=== PATIENT | male | born 1950 | race Caucasian/White ===

== ENCOUNTER 2020-11-15 17:48 | Emergency (ER) | payer OTHER, MEDICARE ==
[~2020-11-15] VITALS: Ht 175.3 cm; Wt 76.2 kg
[2020-11-15] MEDS ORDERED: LIPITOR40 MG PO (18:31)
[2020-11-15] MEDS ORDERED: ABILIFY 5 MG TAB5 MG PO (18:31)
[2020-11-15] MEDS ORDERED: ASA81BEC PO (18:31)
[2020-11-15] MEDS ORDERED: DEPAKOTE 250MG250 M1 PO (18:32)
[2020-11-15] MEDS ORDERED: D3-501250 MCG PO (18:32)
[2020-11-15] MEDS ORDERED: DEPAKOTE125 MG PO (18:33)
[2020-11-15] MEDS ORDERED: ZETIA10 MG PO (18:34)
[2020-11-15] MEDS ORDERED: LEXAPRO20 MG PO (18:35)
[2020-11-15] MEDS ORDERED: LISINOPRIL20 MG PO (18:35)
[2020-11-15] MEDS ORDERED: NEURONTIN100 MG PO (18:35)
[2020-11-15 19:51] LABS: URINE BILIRUBIN NEGATIVE (Negative); URINE BLOOD NEGATIVE (Negative); URINE CLARITY CLEAR; URINE COLOR YELLOW; URINE GLUCOSE-RANDOM* NEGATIVE (Negative); URINE KETONES 1+ (Negative); URINE LEUKOCYTES-REFLEX NEGATIVE (Negative); URINE NITRITE-REFLEX NEGATIVE (Negative); URINE PROTEIN (DIPSTICK) NEGATIVE (Negative); URINE SPECIFIC GRAVITY 1.015 (1.005-1.035)
[2020-11-15 20:18] LABS: ABSOLUTE NEUTROPHILS 2.9 thou/uL (1.4-8.2); BASOPHILS 0.3 % (0.0-2.0); EOSINOPHILS 1.1 % (0.0-3.0); HEMATOCRIT 35.5 % (42.0-52.0); HEMOGLOBIN 11.9 gm/dL (14.0-18.0); LYMPHOCYTES 30.7 % (24.0-44.0); MCH 33.9 pg (26.0-34.0); MCHC 33.6 g/dL (28.0-37.0); MCV 100.9 fL (80.0-100.0); MONOCYTES 11.1 % (1.0-8.0); PLATELET COUNT 158 thou/uL (150-400); POLYS 56.8 % (36.0-66.0); RBC 3.51 mil/uL (4.50-6.00); RDW 14.4 % (10.5-14.5); WBC 5.2 thou/uL (4.0-11.0)
[2020-11-15 20:33] LABS: CALCIUM 9.2 mg/dL (8.5-10.1); CREATININE 0.9 mg/dL (0.7-1.3); POTASSIUM 4.1 mmol/L (3.5-5.1)
[2020-11-15 20:38] LABS: ALBUMIN 3.2 g/dL (3.4-5.0); TOTAL BILIRUBIN 0.6 mg/dL (0.2-1.0); TOTAL PROTEIN 5.7 g/dL (6.4-8.2)
[2020-11-16 05:11] VITALS: BP 115/72
== END 2020-11-16 05:00 | disposition still patient (30) ==
LOC: ER 17:48
PROVIDERS: Physician Assistant
DX: F03.91 Unspecified dementia, unspecified severity, with behavioral disturbance (principal); Z20.828 Contact with and (suspected) exposure to other viral communicable diseases; Z79.899 Other long term (current) drug therapy; Z79.82 Long term (current) use of aspirin

== ENCOUNTER 2020-11-15 21:17 | Inpatient (IN) | payer OTHER, MEDICARE ==
[~2020-11-15] VITALS: Ht 175.3 cm; Wt 73.5 kg
[~2020-11-15 21:17] MED LIST: ABILIFY 5 MG TAB5 MG PO; ASA81BEC PO; D3-501250 MCG PO; DEPAKOTE 250MG250 M1 PO; DEPAKOTE125 MG PO; LEXAPRO20 MG PO; LIPITOR40 MG PO; LISINOPRIL20 MG PO; NEURONTIN100 MG PO; ZETIA10 MG PO
--- NOTE | 2020-11-16 06:35 | NUR ---
Assumed care of patient this am. Patient came up from the emergency department via wheelchair. Vital signs-103/53, 77 pulse, 17 respiratory rate, 97.2 temp, 98% SpO2 on room air. Patient is calm and cooperative. Alert and oriented to self. Patient is very sleepy at this time. Yellow socks put on. Wobbly gait, falls precautions in place. No aggressive behaviors noted at this time. We will continue to monitor per hospital policy.
[2020-11-16 09:16] VITALS: BP 121/55
--- NOTE | 2020-11-16 12:28 | NUR ---
DURING Q 12 MINUTE ROUNDS NOTED BY SEO MANAGER TO BE STANDING IN CORNER OF ROOM URINATING ON FLOOR WHEN SEO MANAGER ATTEMPTED TO GUIDE HIM BACK TO BED PULLED AWAY FROM SEO MANAGER SLIPPING IN OWN URINE AND ALMOST FALLING YELLING LOUDLY"DON'T TOUCH ME AGAIN-I WILL KILL YOU" AND BEGAN TO WALK BACK ACROSS URINE PUDDLE-SEO MANAGER CALLED RN FOR ASSISTANCE AND WE WERE ABLE TO GUIDE HOME BACK TO BED-CONTINUES TO STRIKE OUT AT STAFF GRAB ARMS AND ATTEMPTED TO PUNCH WITH CLOSED FIST AND ATTEMPTED TO BITE-YELLING LOUDLY "DON'T EVER TOUCH ME AGAIN-I WILL KILL YOU" ATTEMPTED TO REASSURE,REORIENT IN ATTEMPTS TO DESCALATE COMBATIVE BEHAVIOR,PARANOIA MET WITH RESISTANCE REPLYING "WELL YOU ARE A CRIMINAL AND A LIAR" DR. ELLINGTON ON UNIT ORDER RECEIVED FOR HALDOL 5MG IM-GIVEN IN LEFT DELTOID BY RN-SECURITY ON UNIT AT TIME OF IM BUT PT IS MINIMALLY RESISTIVE.
--- NOTE | 2020-11-16 15:51 | NUR ---
RESTLESS AND CONFUSED SINCE ABOVE NOTED ENTRY-TAKING BRIEF AND PANTS OFF REPEATEDLY BECOMES AGITATED WITH ATEMPTS TO PUT BACK ON. YELLING "COME ON COME ON WE GOT TO GO" ORIENTED TO NAME ONLY -ANGRY TENSE FACIAL EXPRESSION. DID EAT APPROX 1/2 OF BREAKFAST FEEDING SELF-INCONTINENT OF URINE X 3 SO FAR TODAY. REFUSES ALL PO MEDICATIONS OFFERED-"I KNOW ABOUT DRMalissaS/POISON-EVERYWHERE" SENTENCES ARE FREQUENTLY FRAGMENTED WITH OBVIOUS WORD FINDING DIFFICULTIES. GAIT IS VERY UNSTEADY WHEN ASSISTED TO BATHROOM BY 2 STAFF-BACKWARD LEANING POSTURE AND POOR BALANCE-HIGH FALLS RISK.
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
[2020-11-16 19:34] VITALS: BP 134/80
--- NOTE | 2020-11-17 03:08 | NUR ---
11-16-20 CARE TRANSFERRED 1900 OBSERVED PT SITTING GERICHAIR IN DAY ROOM. PT AAOX1, VSS, RR EVEN AND NONLABORED ON RA. PT DENIES PAIN AND SI/HI. PT HAS BEEN CALM AND COOPERATIVE THROUGHOUT NURSING ASSESSMENT. DURING MEDICATION ADMIN PT HAD NO DIFFICULTIES TAKING WHOLE WITH WATER. BED WAS ADJUSTED FOR COMFORT. ZERO S/S OF ACUTE DISTRESS NOTED, PT WILL CONTINUE TO BE MONITOR PER [facility] PROTOCOL.
[2020-11-17 09:19] VITALS: BP 132/71
[2020-11-17 11:49] VITALS: BP 132/71
--- NOTE | 2020-11-17 11:57 | NUR ---
ASSUMED CARE AT 0700 TODAY. PT. IN RECLINING CHAIR. HE IS NOT ANSWERING QUESTIONS. HE IS SITTING QUIETLY. HE TOOK HIS MORNING MEDICATIONS WITHOUT PROBLEMS NOTED. IS REQUIRING ATTENTION OF STAFF TO MAKE SURE HE EATS, HYGIENE AND ETC.
--- NOTE | 2020-11-17 15:26 | NUR ---
ASSUMED CARE AT 0700 THIS MORNING. PT. IN RECLINING CHAIR. HE OFTEN WAS NOTED TO POUND ON THIS CHAIR TO GET SOMEONE'S ATTENTION. HE CONTINUALLY CALLED THIS RN "IMAN", EVEN THOUGH HE WAS INFORMED MANY TIMES THIS WAS NOT MY GIVEN NAME. HE KEPT STATING, "YES YOU ARE IMAN". HE REMAINS CONFUSED. HE TRIED TO MAKE AN APPOINTMENT WITH THIS AIR VICE MARSHAL TO MEET ME AT 8 PM AND FOR ME TO BRING THE TOOLS TO WORK ON THE EQUIPMENT. WHEN HE WAS REMINDED THIS COULD NOT/WOULD NOT HAPPEN, HE CONTINUALLY STATED, "YES, WE HAVE TO". HE TOOK HIS MORNING MEDICATIONS WITHOUT PROBLEMS. HE FED HIMSELF WITHOUT PROBLEMS NOTED, AND ATE WELL.
[2020-11-17 20:11] VITALS: BP 129/85
--- NOTE | 2020-11-18 06:01 | NUR ---
Assumed care of patient at 1900. Pt resting in bed at start of this shift. Pt then got up and came out to dayroom/dining area for HS snack. Spent part of the evening walking around on the unit. Tends to start to enter other pts rooms, but is easily redirectable. Pt is A & O x 1. Pt affect is flat. He is compliant with medications and assessment. Pt denies any pain. Pt had BM this shift. Pt asking and talking about things that do not make sense. Will ocntinue to monitor for safety and changes in behavior per hospital protocol.
[2020-11-18 09:03] VITALS: BP 119/74
[2020-11-18 09:23] VITALS: BP 119/74
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
[2020-11-18 19:45] VITALS: BP 142/77
--- NOTE | 2020-11-19 05:09 | NUR ---
Assumed care of pt @ 1900. Pt calm et cooperative this shift. Took medications whole without difficulty. Unable to assess ambulation as pt spent most of shift in gerichair. VSWNL. Health assessment with no abnormalities noted at present time. Denies SI/HI/AVH at present time. Socialized with peers in dayroom until HS. Currently resting in bed with eyes closed. Will continue to monitor per unit protocol.
[2020-11-19 08:15] VITALS: BP 119/71
[2020-11-19 09:30] VITALS: BP 119/71
--- NOTE | 2020-11-19 18:58 | NUR ---
Assumed Pt care 0700. Pt was in the day room alert. Pt is oriented to self. Assessment completed without abnormalities. VSS,Pt took medications whole without difficuties. Pt was cooperative with his medications administration. pt was confused, but there was no sign of SI/HI noted. Pt got PRN Haldol PO for aggitation, irritability and aggressiveness twice @ 0937 and 1750. Pt is sometimes unsteady when he is ambulating. Dr ELLINGTON gave an order for a lap cherrie for safety. Pt can most times be intrusive, and invade personal space. Will continue to monitor Pt.
[2020-11-19 20:14] VITALS: BP 97/69
--- NOTE | 2020-11-20 05:11 | NUR ---
Assumed care of pt @ 1900. Pt calm et cooperative this shift. Took medications whole without difficulty. Ambulates the halls ad lucinda with somewhat steady gait. VSWNL. Health assessment with no abnormalities noted at present time. Denies SI/HI/AVH at present time. Socialized with peers in dayroom until HS. Currently resting in bed with eyes closed. Will continue to monitor per unit protocol.
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
[2020-11-20 19:28] VITALS: BP 157/83
--- NOTE | 2020-11-21 05:41 | NUR ---
Assumed care of pt @ 1900. Pt calm et cooperative this shift. Took medications whole without difficulty. Ambulates with unsteady gait. VSWNL. Health assessment with no abnormalities noted at present time. Denies SI/HI/AVH at present time. Socialized with peers in dayroom until HS. Currently resting in gerichair in dayroom with eyes open. Will continue to monitor per unit protocol.
[2020-11-21 06:51] LABS: ABSOLUTE NEUTROPHILS 2.8 thou/uL (1.4-8.2); BASOPHILS 0.3 % (0.0-2.0); HEMATOCRIT 40.8 % (42.0-52.0); HEMOGLOBIN 13.4 gm/dL (14.0-18.0); LYMPHOCYTES 27.1 % (24.0-44.0); MCH 33.1 pg (26.0-34.0); MCHC 32.8 g/dL (28.0-37.0); MONOCYTES 10.1 % (1.0-8.0); PLATELET COUNT 188 thou/uL (150-400); POLYS 61.5 % (36.0-66.0); RBC 4.04 mil/uL (4.50-6.00); RDW 14.5 % (10.5-14.5); WBC 4.5 thou/uL (4.0-11.0)
[2020-11-21 07:21] LABS: ALBUMIN 3.5 g/dL (3.4-5.0); CALCIUM 9.5 mg/dL (8.5-10.1); CREATININE 0.9 mg/dL (0.7-1.3); POTASSIUM 3.6 mmol/L (3.5-5.1); TOTAL BILIRUBIN 0.9 mg/dL (0.2-1.0); TOTAL PROTEIN 6.5 g/dL (6.4-8.2)
--- NOTE | 2020-11-21 11:35 | NUR ---
RESTLESS THIS AM-AGITATED YELLING OUT INTERMITENTLY "GET ME THE HELL OUT OF HERE GODDAMM YOU" ATTEMPTING TO GRAB ARMS OF PEERS AND STAFF WALKING BY HIM-ATTEMPTS TO REORIENT.REDIRECT UNSUCCESSFUL WILL BEGIN TO ARGUE "I AM NOT AT THE HOSPITAL I'M NOT EVEN SICK STOP YOUR LAM LYING AND GET ME OUT OF HERE" AMBULATED TO BATHROOM WITH ASSIST OF 1-2 STAFF BECOMES COMBATIVE WITH INCONTINENT CARE-ATTEMPTING TO WALK ON OWN BUT GAIT IS UNSTEADY-LEANING FORWARD AND LOSING BALANCE ATTEMPTING TO PULL AWAY FROM STAFF ASSISTING. DID TAKE AM MEDS IN YOGURT AND WAS ABLE TO FEED SELF-GOOD APPETITE-ORIENTED TO NAME ONLY-
[2020-11-21 18:51] VITALS: BP 106/46
--- NOTE | 2020-11-22 02:40 | NUR ---
assumed care approx 1900 evening 11/21. pt sitting in recliner in community room at change of shift. pt somewhat appropriate and calm in room. pts meds crushed and given in pudding and ice cream. pt spit out some of meds with pudding and then offered ice cream which he liked better and did not spit out the rest of meds. pt appears to be sleeping soundly in bed with 12 minute rounding. bed alarm on, will continue to monitor.
[2020-11-22 08:20] VITALS: BP 129/76
[2020-11-22 09:35] VITALS: BP 129/76
--- NOTE | 2020-11-22 18:33 | NUR ---
Assumed Pt care at 0700. Pt was in the day room resting. Pt was calm and co-operative with care and medication. Assessment is completed, VSS. Pt took medication crushed without difficulties. Pt ate all meals. Pt was oriented to self, he was confused DUE TO demetia. There was no sign of SI/HI. there was no sign of distress. Pt complained of generalized pain, pt rated a 6 out of 10, tylenol 650mg was administered at 1551. will continue to monitor.
[2020-11-22 19:35] VITALS: BP 144/70
--- NOTE | 2020-11-23 04:08 | NUR ---
11-22-20 CARE TRANSFERRED 1914. PT AAOX2, VSS, RR EVEN AND NONLABORED ON RA. PT DENIES ANY PAIN AND SI/HI. PT HAS BEEN RESTLESS AND REARRANGING FURNITURE IN DAY ROOM. DURING MEDICATION PT HAD NO DIFFICLTIES WITH CRUSHED MEDICATION, NOTED PT SPIT OUT UNKNOWN ABOUT OF MEDICATION. LATER PT WAS EASY TO REDIRECT AND LATER ASSISTED TO ROOM AND BED ADJUSTED FOR COMFORT. RECEIVED LAB PT WAS COVID 19 NEG. ZERO S/S OF ACUTE DISTRESS NOTED, PT IWLL CONTINUE TO BE MONITOR.
[2020-11-23 07:40] VITALS: BP 108/87
--- NOTE | 2020-11-23 15:38 | NUR ---
RT Progress Note- Jose's participation in recreation therapy groups has been limited due to his behaviors on the unit. Jose has difficulty keeping appropriate social boundaries as well as attention and focus. He responds better to 1;1 interaction such as going for a walk in the hallways. STOCK SHAPER will continue to encourage engagement.
--- NOTE | 2020-11-23 17:57 | NUR ---
Assumed pt care at 0700. Pt was alert and oriented to self. Pt was aggressive and unco-operative with care and medication. Assessment completed, VSS. Pt spit out all of his morning medication. DR Carnes was informed and medical writer was asked to repeat the morning medication he spit out.At 0930 medical writer gave pt morning medication. Pt took the medication whole without difficulties. Pt urinated on the hallway floor twice. Pt was confused, there was no sign of distress and pain noted. no sign of SI/HI noted at this time. Pt walked the around the unit most part of the day. will continue to monitor.
[2020-11-23 19:32] VITALS: BP 103/67
[2020-11-23 19:34] VITALS: BP 95/53
--- NOTE | 2020-11-24 06:12 | NUR ---
11-23-19 CARE TRANSFERRED 1899. OBSERVED PT SITTING IN GERICHAIR IN DAY ROOM. PT AAOX1, VSS, RR EVEN AND NONLABORED ON RA, PT DENIED PAIN AND SI/HI. DURING MEDICATION PT TOOK MEDICATION AND A CLEANSING BITE AND THEN I NOTED PT SPIT AND NOTED MEDICATION, UNSURE OF AMOUNT PT INGESTED. STRAP MAKING MACHINE OPERATOR REPORT PT BLD GLUCOSE WAS 62, AND PT DRANK 1 BOX OF APPLE JUICE. LATER PT BECAME AGITATED AND AGITATION INCREASED AND PRN MEDICATION WAS ADMIN. LATER NOTED PT WAS CALMER. NEXT BLD GLUCOSE 64 AND PT DRANK 2 BOXES OF OJ, THE NEXT BLD GLUOSE WAS 96, NO S/S OF ACUTE DISTRESS NOTED, PT WILL CONTINUE TO BE MONITOR PER [facility] PROTOCOL. OF NOTE, PT WAS ASSISTED TO BEDSIDE COMMODE TWICE TO OBTAIN URINE SAMPLE, THIS MAY HAVE ASSISTED IN INCREASING PT AGITATION. WILL PASS THIS IN REPORT TO ONCONING RN.
[2020-11-24 07:09] LABS: GLYCOHEMOGLOBIN (HGB A1C) 4.4 % (4.8-5.6)
[2020-11-24 07:48] VITALS: BP 135/89
[2020-11-24 08:30] VITALS: BP 135/89
--- NOTE | 2020-11-24 08:42 | NUR ---
PT SITTING OUT IN DINING ROOM FOR BREAKFAST. PT NEEDS ASSISTANCE WITH EATING. PT ABLE TO FEED SELF AND DRINK THIN WATER WITHOUT ANY ISSUES. PT TOOK MEDS CRUSHED IN PUDDING. PT TOLERATED WELL.
--- NOTE | 2020-11-24 15:45 | NUR ---
PHYSICAL THERAPY WORKED WITH HIM AND HE WAS ABLE TO WALK TO ROOM WITH WALKER. PT UNABLE TO FOLLOW DIRECTIONS TO SIT DOWN ON BSC. ATTEMPTED TO OBTAIN UA WITH URINAL. PT UNABLE TO URINATE AT THIS TIME. PT DID SIT DOWN ON BED WITH CONSTANT DIRECTION. PT BRIEF CHANGED AND PANTS. PT WAS CLEANED UP AND APPLIED NEW CLOTHES ON PT. PT WALKED BACK TO DINING ROOM AND HAD SOME APPLE SAUCE TO EAT. PT FED SELF APPLE SAUCE.
[2020-11-24 19:02] VITALS: BP 135/81
[2020-11-24 21:41] VITALS: BP 138/73
--- NOTE | 2020-11-25 00:20 | NUR ---
Assumed care for pt at 1900. Pt sitting in dining room in ashwin chair during earlier part of evening. Pt has been calm and cooperative this evening. Pt compliant and cooperative with HS assessment and medications. Pt takes medications crushed in pudding. Pt HS accu check was 165. Pt denies any pain. Pt has not shown any acute signs of distress/discomfort. Pt is on 12 minute checks for safety. Pt is a high fall risk and has unsteady gait w/walker. Pt needs reminded to utilize walker. Pt is currently working with PT. Pt has high fall risk precautions in place. Will continue to monitor per hospital and unit protocols for any changes in behavior and safety.
[2020-11-25 09:01] VITALS: BP 157/93
[2020-11-25 09:43] VITALS: BP 157/93
--- NOTE | 2020-11-25 10:57 | NUR ---
Nutrition: Pt seen for LOS. Admitted with dementia w/ agressive behaviors. Pt with variable appetite, averaging 51% at meals, and noted consumed 100% of breakfast and am snack today. Weight 162# on admission, no new wt to assess.No c/o GI distress, skin remains intact. Being offered snacks with meds. Pt remains low nutrition risk with current interventions. RD will remain available.
--- NOTE | 2020-11-25 14:18 | NUR ---
1400 RESUMMED CARE FROM OVERNIGHT SHIFT THIS AM, PATIENT THIS AM IN DAY ROOM IN ROXANNE CHAIR QUIET. PATIENT ATE BREAKFAST TOOK MEDICATION WITHOUT INCIDENCE CRUSHED IN YOGART. PATIENTS ABDOMEN SOFT ROUNND BOWEL SOUNDS PRESENT LUNGS CLEAR. PATIENT ALERT AND ORIENTED TO SELF ONLY PATIENT CANNOT TELL ME ABOUT SI/HI/AH/VH AT PRESENT. PATIENTS COGNITION IS OFF DUE TO DEMENTIA AND ALZHEMERS. PATIENT IS REDIRECTABLE AND SOMETIMES CAN BE COMBATIVE WITH CARES. WILL CONTINUE TO MONITOR PATIENT FOR SAFETY AND BEHAVIORS.
[2020-11-25 18:56] LABS: URINE BILIRUBIN NEGATIVE (Negative); URINE BLOOD 1+ (Negative); URINE CLARITY CLEAR; URINE COLOR YELLOW; URINE GLUCOSE-RANDOM* NEGATIVE (Negative); URINE KETONES TRACE (Negative); URINE LEUKOCYTES NEGATIVE (Negative); URINE NITRITE NEGATIVE (Negative); URINE PROTEIN (DIPSTICK) NEGATIVE (Negative); URINE SPECIFIC GRAVITY 1.015 (1.005-1.035)
[2020-11-25 19:04] LABS: BACTERIA 1-9 Few /HPF (None Seen); CASTS None Seen /LPF (None Seen); CRYSTALS None Seen /LPF (None Seen); SQUAMOUS 0-3 Few /LPF (0-3); URINE RBC 3-10 Few /HPF (0-2); URINE WBC 0-5 Rare /HPF (0-5)
[2020-11-25 19:30] VITALS: BP 113/70
[2020-11-25 20:36] VITALS: BP 113/70
--- NOTE | 2020-11-26 01:23 | NUR ---
PATIENT SAT UP IN ROXANNE CHAIR THIS EVENING IN THE DINING ROOM BEFORE BEING ASSISTED TO BED AROUND 2129. PATIENT IS A/0X1. HE TOOK HIS MEDS CRUSHED IN PUDDING TO NIGHT. HE ALSO HAD ICECREAM FOR A SNACK AT . HE DENIES PAIN. HE WAS LOUD A COUPLE OF TIMES BUT EASILY REDIRECTED. PATIENT APPEARS TO BE SLEEPING AT THIS TIME. BED IN LOW POSITION AND BED ALARM IS ON. CONTINUING TO ASSESS FOR STATUS AND SAFETY OF PATIENT THRU ROUTINE ROUNDS.
[2020-11-26 06:42] LABS: HEMATOCRIT 40.2 % (42.0-52.0); HEMOGLOBIN 13.4 gm/dL (14.0-18.0); MCH 33.3 pg (26.0-34.0); MCHC 33.2 g/dL (28.0-37.0); MCV 100.3 fL (80.0-100.0); RBC 4.01 mil/uL (4.50-6.00); RDW 14.5 % (10.5-14.5); WBC 4.2 thou/uL (4.0-11.0)
[2020-11-26 07:17] LABS: ALBUMIN 3.3 g/dL (3.4-5.0); CALCIUM 9.3 mg/dL (8.5-10.1); CREATININE 0.9 mg/dL (0.7-1.3); POTASSIUM 3.6 mmol/L (3.5-5.1); TOTAL BILIRUBIN 0.6 mg/dL (0.2-1.0); TOTAL PROTEIN 6.2 g/dL (6.4-8.2)
[2020-11-26 08:00] VITALS: BP 136/87
--- NOTE | 2020-11-26 08:58 | NUR ---
PT SITTING OUT IN DINING ROOM EATING BREAKFAST. PT ABLE TO FEED SELF WITH SMALL AMT OF ASSIST. PT KNOWS BIRTHDAY AND SAYING IT TO THIS STEEL RULE DIE MAKER. PT HAS SOME REDDNESS TO LEFT EYE WITH DRY SEDIMENT. PT HAS EYES CLOSED AND ENCOURAGE TO OPEN EYES. PT LUNGS CLEAR. PT IS CALM AND COOROPERATIVE WITH MEDS. PT TOOK MEDS CRUSHED IN PUDDING THIS AM.
[2020-11-26 09:58] VITALS: BP 136/87
--- NOTE | 2020-11-26 12:58 | NUR ---
MIKI spoke Lisa at [facility], , concening discharge. Lisa confirmed she recieved clinical notes and asked MIKI to schedule transportation. Pt will be d/c 11/29/20 @10am. Pt will be transported by [facility]. MIKI did notify Janie DORSEY, of this discharge.
--- NOTE | 2020-11-26 13:30 | NUR ---
ASSISTED PT TO ROOM TO CHANGE HIS BRIEF AND PANTS. PT WAS ABLE TO SIT ON BED FOR INCON. OF URINE CHANGE. PT WAS CALM AND FOLLOWED DIRECTIONS. PT ABLE TO BEAR WT ON FEET.
[2020-11-26 20:33] VITALS: BP 154/100
[2020-11-26 22:28] VITALS: BP 126/87
--- NOTE | 2020-11-26 22:37 | NUR ---
Assumed care for pt at 1900. Pt sitting in ashwin-chair in dining room at table at start of shift/earlier part of evening. Pt BP assessed at start of shift elevated; reassessed prior to bedtime and BP was WNL at 126/87. Pt compliant with nursing assessment and medications. Pt takes medications crushed in yogurt. Pt denies having any pain. Pt left eye has discharge in corner; assisted with wiping/cleansing eye/eyelid with warm water/wash clothe. Pt is incontinent and assisted with pericare as needed this shift. Pt has been calm and cooperative. Pt is ambulatory at times with walker, but has not been observed ambulating during this shift. Pt is assist x 2 to transfer from gerichair this evening to bed. Pt is redirectable when needed. Pt is a high fall risk and has fall risk protocol in place. Pt is on 12 minute checks for safety. Will continue to monitor pt for any changes in behavior/mood and for safety per hospital/unit protocols.
[2020-11-27 08:24] VITALS: BP 140/85
--- NOTE | 2020-11-27 18:14 | NUR ---
Assumed pt care at 0700. Pt was in the day room. pt was oriented to self, pt was calm and co-operative in day time. Pt took his medication crushed without difficulties. pt was confused due to dementia, there were no signs of SI/HI noted, no pain noted. after dinner pt started getting irritated. there were no Prn given. Assessments are completed and his VSS. will continue to monitor pt.
[2020-11-27 19:29] VITALS: BP 117/76
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
--- NOTE | 2020-11-28 06:04 | NUR ---
Pt had PRN haldol at 0457. Pt sitting in ashwin-chair in dining room at this time and is calmer. PRN appears to have been affective.
[2020-11-28 08:11] VITALS: BP 116/70
[2020-11-28 08:30] VITALS: BP 116/70
--- NOTE | 2020-11-28 08:32 | NUR ---
PT NEEDING ASSIST WITH BREAKFAST. PT LIKES TO HAVE HIS EYES CLOSED. PT DID OPEN EYES WHEN EATING. THIS CASE PREPARER AND LINER WIPED LEFT EYE CRUSTY OUT. PT TOLERATED CLEANING OF FACE. ASKED PT IF HE WANTED TO WIPE HIS FACE, HE DIDN'T RESPOND TO QUESTION. PT ABLE TO FEED SELF, BUT SOMETIMES PT SUCKS SPOON END LIKE IT IS A STRAW. PT TOOK MEDS WITHOUT ANY ISSUES. PT CLEANING FACE WITH [place] AFTER EATING. PT IN ROXANNE CHAIR AT THIS TIME.
--- NOTE | 2020-11-28 12:42 | NUR ---
MIKI faxed updates to [facility]. MIKI team will continue to monitor.
--- NOTE | 2020-11-28 13:00 | NUR ---
PT BRIEF CHANGED. PT TOLERATED ADL CARE. ASSISTED PT WITH LUNCH. PT ABLE TO FEED SELF, HE NEEDS OBSERVATION WITH EATING. PT PUTTING ITEMS IN HIS MOUTH SUCH GRAMHN CRACKER WRAPPERS.
--- NOTE | 2020-11-28 18:30 | NUR ---
TOOK PT TO CHANGE BRIEF DUE TO INCON. PT ABLE TO STAND FOR CHANGE. PT VERY HARD TO DIRECT TO SIT DOWN ON THE COMMODE. PT DID SIT ON BED AND CLEANED UP WITH FRESH BRIEF AND PANTS. PT WANTED TO LAY DOWN THEN SAID HE WASN'T WANTING TO LAY DOWN. PUT PT IN ROXANNE CHAIR WITH LAP KHRIS. PT DOESN'T TRY TO GET UP OUT OF CHAIR.
[2020-11-28 19:21] VITALS: BP 119/75
[2020-11-29 02:30] VITALS: BP 119/75
--- NOTE | 2020-11-29 05:37 | NUR ---
Assumed care of pt at 1900. Pt up in gerichair at start of the shift in dining room. Pt assisted with restroom at 1850. Pt has been cooperative but restless at times. Pt compliant with taking HS medications and took them crushed in applesauce. Pt denied having any pain. Pt is scheduled to discharge this morning @ 1000 to [place]. Pt denied having any pain. Pt denies SI/HI. Pt is observed at times talking to self/unseen other. Pt keeps eyes closed throughout shift. Pt assisted with pericares at 0400 when asked to lay down, after not wanting to lay down prior during night. Pt resting in bed at this time with eyes closed and appears to be sleeping. Pt is a high fall risk with fall risk protocols implemented/in place. Pt is on 12 min checks for safety. Will continue to monitor for any changes, behaviors, and for safety. Pt utilizes a lap cherrie when up in chair for safety, as pt can be impulsive and has hx of falling.
--- NOTE | 2020-11-29 05:54 | NUR ---
Pt COVID19 test results came back negative.
[2020-11-29 08:55] VITALS: BP 140/115
[2020-11-29] MEDS ORDERED: DEPAKOTE SPRIN125 MG PO (09:55)
[2020-11-29] MEDS ORDERED: SEROQUEL 25 MG25 M1 PO (09:56)
[2020-11-29] MEDS ORDERED: NAMENDA 5 MG TAB5 M1 PO (09:56)
[2020-11-29] MEDS ORDERED: LORAZEPAM 0.50.5 MG PO (09:57)
[2020-11-29] MEDS ORDERED: CENTRUM SILVER1 EAC4 PO (09:57)
--- NOTE | 2020-11-29 10:28 | NUR ---
1000 RESUMMED CARE FROM OVERNIGHT SHIFT THIS AM, PATIENT IN DAY ROOM QUIET. PATIENT ATE BREAKFAST TOOK MEDICATION CRUSHED IN APPLESAUCE. PATIENTS ABDOMEN SOFT ROUND BOWEL SOUNDS PRESENT LUNGS CLEAR. PATIENT IS ORIENTED TO SELF SOMETIMES GET CONFUSED PATIENT DENIES SI/HI/AH/VH AT PRESENT. PATIENT IS DISCHARGING TODAY TO [facility]; PATIENTS DISCHARGE INFO AND SCRIPTS SENT WITH TRANSPORTER.
== END 2020-11-29 10:10 | DRG 57 ==
LOC: SBH 21:17
PROVIDERS: Nurse Practitioner Family; ADMIT Psychiatry & Neurology Psychiatry; ATTEND Psychiatry & Neurology Psychiatry
DX: G30.9 Alzheimer's disease, unspecified (principal); F02.81 Dementia in other diseases classified elsewhere, unspecified severity, with behavioral disturbance; I10 Essential (primary) hypertension; E11.40 Type 2 diabetes mellitus with diabetic neuropathy, unspecified; E78.5 Hyperlipidemia, unspecified; Z20.822 Contact with and (suspected) exposure to COVID-19; Z79.899 Other long term (current) drug therapy; Z79.82 Long term (current) use of aspirin; Z23 Encounter for immunization
CPT/HCPCS: 10880

== ENCOUNTER 2020-12-07 10:47 | Emergency (ER) | payer OTHER, MEDICARE ==
[~2020-12-07] VITALS: Ht 182.9 cm; Wt 68.5 kg
[2020-12-07 10:47] VITALS: BP 135/73
[~2020-12-07 10:47] MED LIST changes: +CENTRUM SILVER1 EAC4 PO; +DEPAKOTE SPRIN125 MG PO; +LORAZEPAM 0.50.5 MG PO; +NAMENDA 5 MG TAB5 M1 PO; +SEROQUEL 25 MG25 M1 PO
[2020-12-07] MEDS ORDERED: XANAX 0.25 MG0.25 MG PO (10:58)
--- NOTE | 2020-12-07 11:01 | NUR ---
CALLED [facility], SPOKE WITH THE DON; DESIRAE THAKKAR. SHE STATES: PT. WAS GIVEN HALDOL INPT. HERE AT [facility], THEY D/C'D HALDOL, AND TAPERING THE DEPAKOT AND SEROQUEL. LEXAPRO WAS ALSO D/C'D. ALL ORDERS BY DR VARGHESE. BEHAVIORS ARE PACING, AND STANDING STILL IN AREAS OF THE FACILITY VERY RIGIDLY THEN BECOMES COMBATIVE WHEN ASKED TO MOVE. HE HAS BEEN SPITTING OUT HIS MEDS. HE HAS STOPPED EATING AND HAS LOST WEIGHT. SHE STATES 'ITS LIKE HE HAS COMPLETELY LOST ANY SORT OF TOUCH WITH REALITY OR UNDERSTANDING.' "HE IS A TOTALLY DIFFERENT PERSON AND UNDERSTAND NOTHING" SHE STATES THIS BEHAVIOR STARTED 3 DAYS AFTER COMING BACK FROM [facility] (LAST SUNDAY). DOSE REDUCTION OF SEROQUEL AND DEPAKOTE ON . D/C OF LEXAPRO AND HALDOL UPON READMISSION (NEVER REORDERED) ADDED TO MED LIST: BENZTROPINE 0.5MG QAVIRI 12/03/20 FOR EPS.
[2020-12-07 11:55] LABS: ABSOLUTE NEUTROPHILS 5.5 thou/uL (1.4-8.2); BASOPHILS 0.2 % (0.0-2.0); EOSINOPHILS 0.4 % (0.0-3.0); HEMATOCRIT 38.3 % (42.0-52.0); HEMOGLOBIN 12.7 gm/dL (14.0-18.0); LYMPHOCYTES 17.3 % (24.0-44.0); MCHC 33.3 g/dL (28.0-37.0); MCV 99.2 fL (80.0-100.0); MONOCYTES 12.8 % (1.0-8.0); PLATELET COUNT 179 thou/uL (150-400); POLYS 69.3 % (36.0-66.0); RBC 3.86 mil/uL (4.50-6.00); RDW 14.3 % (10.5-14.5)
[2020-12-07 11:58] LABS: CALCIUM 9.2 mg/dL (8.5-10.1); CREATININE 0.8 mg/dL (0.7-1.3)
[2020-12-07 12:01] LABS: URINE BILIRUBIN NEGATIVE (Negative); URINE BLOOD NEGATIVE (Negative); URINE CLARITY CLEAR; URINE COLOR YELLOW; URINE GLUCOSE-RANDOM* NEGATIVE (Negative); URINE KETONES 1+ (Negative); URINE LEUKOCYTES-REFLEX NEGATIVE (Negative); URINE NITRITE-REFLEX NEGATIVE (Negative); URINE PROTEIN (DIPSTICK) NEGATIVE (Negative); URINE UROBILINOGEN >= 8.0 E.U./dl (0.2-1.0)
[2020-12-07 12:05] LABS: TOTAL BILIRUBIN 0.9 mg/dL (0.2-1.0); TOTAL PROTEIN 6.5 g/dL (6.4-8.2)
--- NOTE | 2020-12-08 07:26 | EKG ---
[place] [address] [facility] [place] [address] ELECTROCARDIOGRAM REPORT Name: SANDEEP ROJAS [id number] Admission: 12/07/20 Attend Phys: Discharge: Date of : 54 Report #: [id number] [facility] ED Test Date: 2020-12-07 Test Time: 17:11:19 Pat Name: SANDEEP ROJAS Department: Room: Gender: M Alpaca Farmer: ERNIE : 1950 Requested By: Deon Renee Order Number: [id number] MD: Tony Pittman Measurements Intervals Lueders Rate: 75 P: 18 ME: 140 QRS: -21 QRSD: 130 T: 34 QT: 445 QTc: 498 Interpretive Statements Sinus rhythm Multiple ventricular premature complexes Right bundle branch block Baseline wander in lead(s) V3 No previous ECG available for comparison Electronically Signed On 12-08-2020 7:26:33 SHINGLE TRIMMER by Tony Pittman [email or web address] <ELECTRONICALLY SIGNED> By: Tony Pittman MD, [facility] 12/08/20 0726 171 1711 Tony Pittman MD, FACC /EPI
[2020-12-08 08:45] VITALS: BP 126/82
== END 2020-12-08 08:45 ==
LOC: ER 10:47 → EROBS 12-08 08:45 → ER 12-08 08:47 → EROBS 12-08 08:47 → SBH 12-08 08:48 → EROBS 12-08 08:48
PROVIDERS: Physician Assistant
DX: F03.90 Unspecified dementia, unspecified severity, without behavioral disturbance, psychotic disturbance, mood disturbance, and anxiety (principal); R45.6 Violent behavior; Z20.822 Contact with and (suspected) exposure to COVID-19; I10 Essential (primary) hypertension; E11.41 Type 2 diabetes mellitus with diabetic mononeuropathy

== ENCOUNTER 2020-12-08 08:18 | Inpatient (IN) | payer OTHER, MEDICARE ==
[~2020-12-08] VITALS: Ht 177.8 cm; Wt 65.5 kg
[~2020-12-08 08:18] MED LIST changes: +XANAX 0.25 MG0.25 MG PO
[2020-12-08 19:41] VITALS: BP 148/74
[2020-12-09 09:30] VITALS: BP 114/72
[2020-12-09 09:46] VITALS: BP 114/72
[2020-12-09 19:11] VITALS: BP 151/84
[2020-12-10 07:08] LABS: CREATININE 0.9 mg/dL (0.7-1.3); POTASSIUM 3.7 mmol/L (3.5-5.1)
[2020-12-10 08:29] VITALS: BP 176/108
[2020-12-10 10:50] VITALS: BP 136/103
[2020-12-10 10:53] VITALS: BP 140/90
[2020-12-10 12:41] LABS: URINE BILIRUBIN NEGATIVE (Negative); URINE BLOOD NEGATIVE (Negative); URINE CLARITY CLEAR; URINE COLOR YELLOW; URINE GLUCOSE-RANDOM* NEGATIVE (Negative); URINE KETONES TRACE (Negative); URINE LEUKOCYTES-REFLEX NEGATIVE (Negative); URINE NITRITE-REFLEX NEGATIVE (Negative); URINE PROTEIN (DIPSTICK) NEGATIVE (Negative); URINE SPECIFIC GRAVITY 1.025 (1.005-1.035)
[2020-12-10 20:07] VITALS: BP 118/84
[2020-12-10 21:00] VITALS: BP 118/84
[2020-12-11 07:50] VITALS: BP 99/70
[2020-12-11 14:30] VITALS: BP 99/70
[2020-12-11 19:44] VITALS: BP 137/87
[2020-12-12 10:12] VITALS: BP 139/110
[2020-12-12 18:10] VITALS: BP 99/71
[2020-12-13 10:57] VITALS: BP 113/68
[2020-12-13 19:53] VITALS: BP 106/58
[2020-12-13 21:15] VITALS: BP 92/44
[2020-12-13 22:15] VITALS: BP 94/46
--- NOTE | 2020-12-14 08:02 | EKG ---
[place] [address] [facility] [place] [address] ELECTROCARDIOGRAM REPORT Name: SANDEEP ROJAS Room #: 528[facility] ADM IN M.R.#: [id number] Admission: 12/08/20 Attend Phys: Lani Carnes MD Discharge: Date of : 54 Report #: [id number] [facility] Test Date: 2020-12-14 Test Time: 07:30:41 Pat Name: SANDEEP ROJAS Department: Room: [facility] Gender: M Chief Accountant: CHRISTIAN : 1950 Requested By: Lani Carnes Order Number: [id number] MD: Shan Alford Measurements Intervals [place] Rate: 91 P: 21 CA: 143 QRS: -62 QRSD: 126 T: 36 QT: 359 QTc: 442 Interpretive Statements Sinus rhythm Ventricular premature complex RBBB and LAFB Baseline wander in lead(s) V2 Compared to ECG 12/07/2020 17:11:19 [place] has shifted leftward Electronically Signed On 12-14-2020 8:02:29 [employer] by Shan Alford [email or web address] <ELECTRONICALLY SIGNED> By: Shan Alford MD, [facility] 12/14/20801 9 9 Sahn Alford MD, [facility] /EPI
[2020-12-14 09:10] VITALS: BP 135/62
[2020-12-14 20:17] VITALS: BP 106/73
[2020-12-15 13:08] VITALS: BP 129/79
[2020-12-15 19:53] VITALS: BP 110/85
[2020-12-16 05:46] LABS: HEMATOCRIT 40.6 % (42.0-52.0); HEMOGLOBIN 13.5 gm/dL (14.0-18.0); MCH 33.2 pg (26.0-34.0); MCHC 33.3 g/dL (28.0-37.0); MCV 99.7 fL (80.0-100.0); RBC 4.07 mil/uL (4.50-6.00); RDW 14.2 % (10.5-14.5)
[2020-12-16 05:51] LABS: ALBUMIN 3.1 g/dL (3.4-5.0); CALCIUM 9.3 mg/dL (8.5-10.1); POTASSIUM 3.8 mmol/L (3.5-5.1); TOTAL BILIRUBIN 0.6 mg/dL (0.2-1.0); TOTAL PROTEIN 6.7 g/dL (6.4-8.2)
[2020-12-16 08:15] VITALS: BP 116/81
[2020-12-16 09:49] VITALS: BP 116/81
[2020-12-17 08:25] VITALS: BP 100/71
[2020-12-17 10:05] VITALS: BP 100/71
[2020-12-17 20:06] VITALS: BP 105/74
[2020-12-18 07:47] VITALS: BP 117/46
[2020-12-18 18:23] VITALS: BP 136/94
[2020-12-19 06:45] LABS: CALCIUM 9.3 mg/dL (8.5-10.1); CREATININE 0.7 mg/dL (0.7-1.3); POTASSIUM 4.1 mmol/L (3.5-5.1)
[2020-12-19 08:00] VITALS: BP 118/65
[2020-12-19 20:12] VITALS: BP 127/86
[2020-12-20 09:35] VITALS: BP 142/79
[2020-12-20 15:51] LABS: URINE BILIRUBIN NEGATIVE (Negative); URINE BLOOD NEGATIVE (Negative); URINE CLARITY CLEAR; URINE COLOR YELLOW; URINE GLUCOSE-RANDOM* NEGATIVE (Negative); URINE KETONES TRACE (Negative); URINE LEUKOCYTES NEGATIVE (Negative); URINE NITRITE NEGATIVE (Negative); URINE PROTEIN (DIPSTICK) NEGATIVE (Negative); URINE SPECIFIC GRAVITY 1.025 (1.005-1.035)
[2020-12-20 20:16] VITALS: BP 98/81
[2020-12-21 19:35] VITALS: BP 99/77
[2020-12-22 09:51] VITALS: BP 117/78
[2020-12-22 19:29] VITALS: BP 102/61
[2020-12-23 09:28] VITALS: BP 84/57
[2020-12-23] MEDS ORDERED: FLOMAX0.4 MG PO (13:30)
[2020-12-23] MEDS ORDERED: ABILIFY 2 MG2 M1 PO (13:30)
[2020-12-23] MEDS ORDERED: TRAZODONE HCL100 MG PO (13:30)
[2020-12-23] MEDS ORDERED: LISINOPRIL20 MG PO (13:30)
[2020-12-23 19:30] VITALS: BP 103/62
[2020-12-24 07:53] VITALS: BP 96/61
[2020-12-24 08:30] VITALS: BP 96/61
== END 2020-12-24 14:47 | disposition hospice, inpatient (51) | DRG 884 ==
LOC: SBH 08:18
PROVIDERS: Hospitalist; ADMIT Psychiatry & Neurology Psychiatry; ATTEND Psychiatry & Neurology Psychiatry
DX: F01.51 Vascular dementia, unspecified severity, with behavioral disturbance (principal); E11.42 Type 2 diabetes mellitus with diabetic polyneuropathy; I10 Essential (primary) hypertension; E78.5 Hyperlipidemia, unspecified; R33.9 Retention of urine, unspecified; S30.1XXA Contusion of abdominal wall, initial encounter; X58.XXXA Exposure to other specified factors, initial encounter; Z20.822 Contact with and (suspected) exposure to COVID-19; Z79.82 Long term (current) use of aspirin; Z79.899 Other long term (current) drug therapy; Y93.89 Activity, other specified; Y92.89 Other specified places as the place of occurrence of the external cause; Y99.8 Other external cause status; Z23 Encounter for immunization
CPT/HCPCS: 10880